=== PATIENT | male | born 1940 | race Caucasian/White ===

== ENCOUNTER 2021-01-27 19:38 | Inpatient (IN) | payer MEDICARE, MEDICAID ==
[~2021-01-27] VITALS: Ht 175.3 cm; Wt 78.5 kg
[~2021-01-27 19:38] MED LIST: ALBUTEROL; ASPI-1497 PO; ATOR40TA70 PO; LOSA100T32 PO
[2021-01-27] MEDS ORDERED: METHYLPREDNISOLONE SOD SUCC 125 MG/2 ML VIAL IV STA (21:16)
[2021-01-27 21:28] LABS: BASOPHILS % 0.4 % (0.0-2.0); EOSINOPHILS % 2.1 % (0.0-5.0); HEMATOCRIT. 46.1 % (42.0-52.0); HEMOGLOBIN. 15.3 g/dL (14.0-18.0); LYMPHOCYTES % 32.4 % (20.0-50.0); MEAN CORPUSCULAR HEMOGLOBIN 32.3 pg (28.0-32.0); MEAN CORPUSCULAR VOLUME 97.1 fL (80.0-94.0); MEAN PLATELET VOLUME 9.7 fl (7.4-10.4); MONOCYTES % 10.5 % (2.0-8.0); NEUTROPHILS % 54.6 % (40.0-76.0); PLATELET 246 x1000/uL (130-400); RED BLOOD CELL COUNT 4.75 mill/uL (4.7-6.1); RED CELL DISTRIBUTION WIDTH 14.3 % (11.6-14.6)
[2021-01-27 21:29] LABS: CHLORIDE 101 mEq/L (98-107)
[2021-01-27] MEDS ORDERED: MAGNESIUM 2 G PREMIX 50 ML IV ONE (21:30)
[2021-01-27] MEDS ORDERED: DOXYCYCLINE HYCLATE 100 MG/VIAL IV ONE (22:15)
[2021-01-27] MEDS ORDERED: CEFTRIAXONE 1 G PREMIX 50 ML IV ONE (22:15)
[2021-01-27] MEDS ORDERED: DOXYCYCLINE 100MG in DEXTROSE 5% WATER 100ML IV NR (22:30)
[2021-01-27] MEDS ORDERED: IPRATROPIUM BROMIDE (0.02%) 0.5MG/2.5ML NEB HHN STA (22:46)
[2021-01-27] MEDS ORDERED: ONDANSETRON HCL 4MG/2ML INJ IV PRN (23:00)
[2021-01-27] MEDS ORDERED: CLONIDINE 0.1MG TABLET PO PRN (23:00)
[2021-01-27] MEDS: AMLODIPINE 10MG TABLET PO SCH (23:00)
[2021-01-27] MEDS ORDERED: HYDROCODONE/ACETAMINOPHEN 5/325MG TABLET PO PRN (23:00)
[2021-01-27] MEDS: METHYLPREDNISOLONE SOD SUCC 125 MG/2 ML VIAL IV SCH (23:00)
[2021-01-27] MEDS ORDERED: CEFTRIAXONE 1 G PREMIX 50 ML IV SCH (23:00)
[2021-01-27] MEDS ORDERED: MAGNESIUM/ALUMINUM HYDROXIDE/SIMETHICONE 30ML UDC PO PRN (23:00)
[2021-01-27] MEDS ORDERED: IPRATROPIUM/ALBUTEROL 0.5-3(2.5)MG/3ML NEB HHN PRN (23:00)
[2021-01-27] MEDS ORDERED: ACETAMINOPHEN 325MG TABLET PO PRN (23:00)
[2021-01-27] MEDS ORDERED: GUAIFENESIN 200MG/10ML SUGAR FREE UDC PO PRN (23:00)
[2021-01-27] MEDS ORDERED: DOCUSATE SODIUM 100MG CAPSULE PO PRN (23:00)
[2021-01-27] MEDS: ALBUTEROL (0.083%) 2.5MG/3ML NEB HHN SCH ×2 (23:55→23:56)
[2021-01-28] MEDS ORDERED: AZITHROMYCIN 500 MG in DEXT 5% WATER 250 ML IV SCH
[2021-01-28] MEDS: ALBUTEROL (0.083%) 2.5MG/3ML NEB HHN SCH (00:53)
[2021-01-28] MEDS: IPRATROPIUM/ALBUTEROL 0.5-3(2.5)MG/3ML NEB HHN SCH (00:58)
[2021-01-28] MEDS: METHYLPREDNISOLONE SOD SUCC 125 MG/2 ML VIAL IV SCH ×3 (05:08→18:07)
[2021-01-28 05:42] LABS: HEMATOCRIT. 45.6 % (42.0-52.0); MEAN CORPUSCULAR HEMOGLOBIN 31.7 pg (28.0-32.0); MEAN CORPUSCULAR VOLUME 96.5 fL (80.0-94.0); MEAN PLATELET VOLUME 9.4 fl (7.4-10.4); PLATELET 239 x1000/uL (130-400); RED BLOOD CELL COUNT 4.72 mill/uL (4.7-6.1); RED CELL DISTRIBUTION WIDTH 13.8 % (11.6-14.6)
[2021-01-28 05:48] LABS: CHLORIDE 100 mEq/L (98-107)
[2021-01-28 05:58] LABS: LDL CHOLESTEROL 82 mg/dL (5-100)
[2021-01-28 06:02] LABS: HDL CHOLESTEROL 46 mg/dL (40-59)
[2021-01-28 07:32] LABS: PLATELET ESTIMATE NORMAL
[2021-01-28] MEDS ORDERED: ASPIRIN 81MG EC TABLET PO SCH (09:00)
[2021-01-28 09:30] VITALS: BP 152/71
[2021-01-28] MEDS ORDERED: NALOXONE HCL 0.4MG/ML VIAL IV PRN (10:00)
[2021-01-28 10:04] LABS: BG BASE EXCESS 1.4 mmol/L (-2.0-2.0); BG CARBOXYHEMOGLOBIN 0.5 % (0.5-1.5); BG DEOXYHEMOGLOBIN 6.5 % (0.0-5.0); BG FRACTION INSPIRED OXYGEN 21; BG METHEMOGLOBIN 0.1 % (0.0-1.5); BG OXYGEN SATURATION 93.5 % (92.0-98.5); BG OXYHEMOGLOBIN 92.9 % (94.0-97.0); BG PCO2 40.8 mmHg (35.0-45.0); BG PH 7.422 (7.350-7.450); BG PO2 67.6 mmHg (75.0-100.0); BG SAMPLE SITE RIGHT RADIAL; BG TOTAL HEMOGLOBIN 16.2 g/dL (12.0-18.0); BG VENT MODE ROOM AIR
[2021-01-28 10:19] VITALS: BP 152/71
[2021-01-28] MEDS: ATORVASTATIN CALCIUM 40MG TABLET PO SCH (11:05)
[2021-01-28] MEDS: LOSARTAN POTASSIUM 100 MG TABLET PO SCH (11:05)
[2021-01-28] MEDS: AMLODIPINE 10MG TABLET PO SCH (11:05)
[2021-01-28] MEDS: ASPIRIN 81MG EC TABLET PO SCH (11:05)
[2021-01-28 16:00] VITALS: BP 123/62
[2021-01-28] MEDS ORDERED: DEXTROSE 50% WATER 50ML SYRINGE IV PRN (19:45)
[2021-01-28 20:00] VITALS: BP 106/62
[2021-01-28] MEDS: CEFTRIAXONE 1,000 MG in DEXTROSE 5% WATER 50 ML IV SCH (20:58)
[2021-01-28] MEDS: BLOOD SUGAR DIAGNOSTIC STRIP TEST SCH (20:59)
[2021-01-28] MEDS: INSULIN LISPRO 100 UNITS/ML SUBCUT SCH (20:59)
[2021-01-29] VITALS (9 sets, daily range): BP systolic 95–136; BP diastolic 51–68
[2021-01-29] MEDS: METHYLPREDNISOLONE SOD SUCC 125 MG/2 ML VIAL IV SCH ×2 (00:17→05:32)
[2021-01-29] MEDS: AZITHROMYCIN 500 MG in DEXT 5% WATER 250 ML IV SCH ×2 (00:17→22:20)
[2021-01-29] MEDS: INSULIN LISPRO 100 UNITS/ML SUBCUT SCH ×5 (06:22→21:59)
[2021-01-29] MEDS: BLOOD SUGAR DIAGNOSTIC STRIP TEST SCH ×4 (06:22→21:58)
[2021-01-29 07:50] LABS: HEMATOCRIT. 45.8 % (42.0-52.0); HEMOGLOBIN. 15.3 g/dL (14.0-18.0); MEAN CORPUSCULAR HEMOGLOBIN 32.4 pg (28.0-32.0); MEAN CORPUSCULAR VOLUME 96.7 fL (80.0-94.0); PLATELET 221 x1000/uL (130-400); RED BLOOD CELL COUNT 4.74 mill/uL (4.7-6.1); RED CELL DISTRIBUTION WIDTH 13.9 % (11.6-14.6)
[2021-01-29] MEDS: IPRATROPIUM/ALBUTEROL 0.5-3(2.5)MG/3ML NEB HHN SCH ×2 (08:44→14:27)
[2021-01-29] MEDS: LOSARTAN POTASSIUM 100 MG TABLET PO SCH (09:22)
[2021-01-29] MEDS: ATORVASTATIN CALCIUM 40MG TABLET PO SCH (09:22)
[2021-01-29] MEDS: ASPIRIN 81MG EC TABLET PO SCH (09:22)
[2021-01-29] MEDS: AMLODIPINE 10MG TABLET PO SCH (09:22)
[2021-01-29] MEDS ORDERED: FLUT1AER INH (12:51)
[2021-01-29] MEDS ORDERED: P20 PO (12:51)
[2021-01-29] MEDS ORDERED: LEVO500T89 MT (12:51)
[2021-01-29] MEDS ORDERED: IPRA3AMP9 NEB (12:51)
[2021-01-29] MEDS: METHYLPREDNISOLONE SOD SUCC 40 MG/ML VIAL IV SCH ×2 (14:08→22:20)
[2021-01-29 15:53] LABS: CLARITY URINE CLEAR (CLEAR); COLOR URINE YELLOW (YELLOW); KETONES URINE NEGATIVE (NEGATIVE); LEUKOCYTE ESTERASE URINE NEGATIVE (NEGATIVE); NITRITE URINE NEGATIVE (NEGATIVE); OCCULT BLOOD URINE NEGATIVE (NEGATIVE); PH URINE 5.5 (4.5-8.0); PROTEIN URINE NEGATIVE (NEGATIVE); SPECIFIC GRAVITY URINE 1.017 (1.005-1.030); UROBILINOGEN URINE 0.2 E.U./dL (0.2-1.0)
[2021-01-29 17:20] LABS: HEMATOCRIT. 49.3 % (42.0-52.0); HEMOGLOBIN. 16.4 g/dL (14.0-18.0); MEAN CORPUSCULAR HEMOGLOBIN 32.1 pg (28.0-32.0); MEAN CORPUSCULAR VOLUME 96.5 fL (80.0-94.0); MEAN PLATELET VOLUME 10.2 fl (7.4-10.4); PLATELET 300 x1000/uL (130-400); RED BLOOD CELL COUNT 5.11 mill/uL (4.7-6.1); RED CELL DISTRIBUTION WIDTH 14.3 % (11.6-14.6)
[2021-01-29 17:33] LABS: PLATELET ESTIMATE NORMAL
[2021-01-29 17:52] LABS: PLATELET ESTIMATE NORMAL
[2021-01-29] MEDS ORDERED: INSULIN LISPRO 100 UNITS/ML SUBCUT NR (21:45)
[2021-01-29] MEDS: CEFTRIAXONE 1,000 MG in DEXTROSE 5% WATER 50 ML IV SCH (21:58)
[2021-01-30] VITALS (7 sets, daily range): BP systolic 119–138; BP diastolic 47–73
[2021-01-30] MEDS: BLOOD SUGAR DIAGNOSTIC STRIP TEST SCH ×4 (06:12→21:45)
[2021-01-30] MEDS: METHYLPREDNISOLONE SOD SUCC 40 MG/ML VIAL IV SCH ×3 (06:12→21:44)
[2021-01-30] MEDS: INSULIN LISPRO 100 UNITS/ML SUBCUT SCH ×4 (06:14→21:45)
[2021-01-30 08:25] LABS: HEMOGLOBIN. 16.4 g/dL (14.0-18.0); MEAN CORPUSCULAR HEMOGLOBIN 32.3 pg (28.0-32.0); MEAN CORPUSCULAR VOLUME 98.5 fL (80.0-94.0); MEAN PLATELET VOLUME 9.9 fl (7.4-10.4); PLATELET 296 x1000/uL (130-400); RED BLOOD CELL COUNT 5.07 mill/uL (4.7-6.1); RED CELL DISTRIBUTION WIDTH 14.1 % (11.6-14.6)
[2021-01-30] MEDS: ASPIRIN 81MG EC TABLET PO SCH (08:57)
[2021-01-30] MEDS: LOSARTAN POTASSIUM 100 MG TABLET PO SCH (08:58)
[2021-01-30] MEDS: AMLODIPINE 10MG TABLET PO SCH (08:58)
[2021-01-30] MEDS: ATORVASTATIN CALCIUM 40MG TABLET PO SCH (08:58)
[2021-01-30 11:08] LABS: PLATELET ESTIMATE NORMAL
[2021-01-30 12:43] LABS: HEMOGLOBIN 16.4 g/dL (14.0-18.0); MEAN CORPUSCULAR VOLUME 97.7 fL (80.0-94.0); PLATELET 300 x1000/uL (130-400); RED BLOOD CELL COUNT 5.11 mill/uL (4.7-6.1); RED CELL DISTRIBUTION WIDTH 14.4 % (11.6-14.6)
[2021-01-30] MEDS: CEFTRIAXONE 1,000 MG in DEXTROSE 5% WATER 50 ML IV SCH (21:44)
[2021-01-30] MEDS: AZITHROMYCIN 500 MG in DEXT 5% WATER 250 ML IV SCH (21:44)
[2021-01-31] MEDS: IPRATROPIUM/ALBUTEROL 0.5-3(2.5)MG/3ML NEB HHN SCH ×2 (01:25→09:00)
[2021-01-31 04:00] VITALS: BP 141/75
[2021-01-31] MEDS: METHYLPREDNISOLONE SOD SUCC 40 MG/ML VIAL IV SCH (05:09)
[2021-01-31] MEDS: INSULIN LISPRO 100 UNITS/ML SUBCUT SCH ×2 (06:11→12:24)
[2021-01-31] MEDS: BLOOD SUGAR DIAGNOSTIC STRIP TEST SCH ×2 (06:12→12:18)
[2021-01-31 06:54] LABS: HEMATOCRIT. 47.3 % (42.0-52.0); HEMOGLOBIN. 15.7 g/dL (14.0-18.0); MEAN CORPUSCULAR HEMOGLOBIN 32.3 pg (28.0-32.0); MEAN CORPUSCULAR VOLUME 97.4 fL (80.0-94.0); MEAN PLATELET VOLUME 9.8 fl (7.4-10.4); PLATELET 261 x1000/uL (130-400); RED BLOOD CELL COUNT 4.86 mill/uL (4.7-6.1); RED CELL DISTRIBUTION WIDTH 14.5 % (11.6-14.6)
[2021-01-31 08:00] VITALS: BP 133/60
[2021-01-31] MEDS: AMLODIPINE 10MG TABLET PO SCH (08:48)
[2021-01-31] MEDS: LOSARTAN POTASSIUM 100 MG TABLET PO SCH (08:48)
[2021-01-31] MEDS: ASPIRIN 81MG EC TABLET PO SCH (08:48)
[2021-01-31] MEDS: ATORVASTATIN CALCIUM 40MG TABLET PO SCH (08:48)
[2021-01-31 12:00] VITALS: BP 135/62
[2021-01-31 12:28] VITALS: BP 135/62
[2021-01-31 22:29] LABS: PLATELET ESTIMATE NORMAL
== END 2021-01-31 13:24 | disposition home or self-care (01) | DRG 193 ==
LOC: ER 19:38 → MICUSO 22:48 → 7WST 01-28 09:50 → 7EST 01-28 12:24
PROVIDERS: ADMIT Internal Medicine; ATTEND Internal Medicine
DX: J18.9 Pneumonia, unspecified organism (principal); J96.01 Acute respiratory failure with hypoxia; J44.1 Chronic obstructive pulmonary disease with (acute) exacerbation; J45.901 Unspecified asthma with (acute) exacerbation; J44.0 Chronic obstructive pulmonary disease with (acute) lower respiratory infection; I11.0 Hypertensive heart disease with heart failure; I50.9 Heart failure, unspecified; Z20.822 Contact with and (suspected) exposure to COVID-19; E78.5 Hyperlipidemia, unspecified; D72.829 Elevated white blood cell count, unspecified; E11.65 Type 2 diabetes mellitus with hyperglycemia; Z82.49 Family history of ischemic heart disease and other diseases of the circulatory system; Z87.891 Personal history of nicotine dependence; Z79.51 Long term (current) use of inhaled steroids; Z79.82 Long term (current) use of aspirin; Z79.899 Other long term (current) drug therapy
CPT/HCPCS: 36415; 36600; 71045; 80048; 80053; 80061; 81003; 82375; 82805; 82962; 83036; 83880; 84145; 84484; 85025; 85027; 85379; 87426; 93005; 93970; 94640; 99285; J0456; J0696; J1815; J2920; J2930; J3475; J3490; J7040; J7060; U0003; U0005

== ENCOUNTER 2021-10-15 22:17 | Inpatient (IN) | payer MEDICARE, MEDICAID ==
[~2021-10-15] VITALS: Ht 165.1 cm; Wt 89.8 kg
[~2021-10-15 22:17] MED LIST changes: -ALBUTEROL; +FLUT1AER INH; +IPRA3AMP9 NEB; +LEVO500T90 MT; +P20 PO
[2021-10-15] MEDS ORDERED: METHYLPREDNISOLONE SOD SUCC 125 MG/2 ML VIAL IV STA (22:21)
[2021-10-15] MEDS ORDERED: ALBUTEROL (0.083%) 2.5MG/3ML NEB HHN STA (22:21)
[2021-10-15] MEDS ORDERED: MAGNESIUM 2 G PREMIX 50 ML IV STA (22:21)
[2021-10-15] MEDS ORDERED: IPRATROPIUM BROMIDE (0.02%) 0.5MG/2.5ML NEB HHN STA (22:21)
[2021-10-15] MEDS ORDERED: CEFTRIAXONE 1 G PREMIX 50 ML IV ONE (22:45)
[2021-10-15] MEDS ORDERED: AZITHROMYCIN 500 MG in DEXT 5% WATER 250 ML IV NR (22:45)
[2021-10-15 22:53] LABS: HEMATOCRIT. 52.6 % (42.0-52.0); HEMOGLOBIN. 17.1 g/dL (14.0-18.0); MEAN CORPUSCULAR VOLUME 98.4 fL (80.0-94.0); MEAN PLATELET VOLUME 9.6 fl (7.4-10.4); PLATELET 200 x1000/uL (130-400); RED BLOOD CELL COUNT 5.34 mill/uL (4.7-6.1); RED CELL DISTRIBUTION WIDTH 14.8 % (11.6-14.6)
[2021-10-15 22:59] LABS: CHLORIDE 104 mEq/L (98-107)
[2021-10-15] MEDS ORDERED: CEFTRIAXONE 1,000 MG in DEXTROSE 5% WATER 50 ML IV NR (23:00)
[2021-10-15] MEDS ORDERED: SODIUM CHLORIDE 0.9% 1000ML BAG (SEPSIS BOLUS) IV ONE (23:15)
[2021-10-15 23:28] LABS: PLATELET ESTIMATE NORMAL
[2021-10-16] VITALS (17 sets, daily range): BP systolic 100–135; BP diastolic 53–70
[2021-10-16] MEDS ORDERED: IPRATROPIUM BROMIDE (0.02%) 0.5MG/2.5ML NEB HHN STA ×2 (01:03→02:31)
[2021-10-16] MEDS ORDERED: ALBUTEROL (0.083%) 2.5MG/3ML NEB HHN STA ×2 (01:03→02:31)
[2021-10-16] MEDS ORDERED: METHYLPREDNISOLONE SOD SUCC 125 MG/2 ML VIAL IV STA (02:31)
[2021-10-16 04:29] LABS: BG BASE EXCESS -9.8 mmol/L (-2.0-2.0); BG CARBOXYHEMOGLOBIN 0.7 % (0.5-1.5); BG DEOXYHEMOGLOBIN 5.2 % (0.0-5.0); BG HCO3 ACT 19.4 mmol/L (22.0-26.0); BG METHEMOGLOBIN 0.6 % (0.0-1.5); BG OXYGEN SATURATION 94.7 % (92.0-98.5); BG OXYHEMOGLOBIN 93.5 % (94.0-97.0); BG PH 7.166 (7.350-7.450); BG PO2 89.7 mmHg (75.0-100.0); BG SAMPLE SITE RIGHT BRACHIAL; BG TOTAL HEMOGLOBIN 17.4 g/dL (12.0-18.0); BG VENT MODE MASK - SIMPLE
[2021-10-16] MEDS ORDERED: CEFTRIAXONE 1 G PREMIX 50 ML IV SCH (05:15)
[2021-10-16] MEDS: METHYLPREDNISOLONE SOD SUCC 40 MG/ML VIAL IV SCH ×4 (05:34→23:03)
[2021-10-16 06:10] LABS: BG BASE EXCESS -11.7 mmol/L (-2.0-2.0); BG CARBOXYHEMOGLOBIN 1.1 % (0.5-1.5); BG DEOXYHEMOGLOBIN 2.2 % (0.0-5.0); BG FRACTION INSPIRED OXYGEN 50; BG HCO3 ACT 16.5 mmol/L (22.0-26.0); BG METHEMOGLOBIN 0.4 % (0.0-1.5); BG OXYGEN SATURATION 97.8 % (92.0-98.5); BG OXYHEMOGLOBIN 96.3 % (94.0-97.0); BG PCO2 45.4 mmHg (35.0-45.0); BG PH 7.178 (7.350-7.450); BG PO2 130.3 mmHg (75.0-100.0); BG SAMPLE SITE RIGHT RADIAL; BG TOTAL HEMOGLOBIN 16.5 g/dL (12.0-18.0); BG TOTAL RESPIRATORY RATE 28 b/min
[2021-10-16] MEDS ORDERED: SODIUM BICARBONATE 8.4% 1 MEQ/ML 50ML SYR IV NR (06:15)
[2021-10-16] MEDS: ENOXAPARIN 30MG/0.3ML SYR SUBCUT SCH (08:10)
[2021-10-16] MEDS ORDERED: IPRATROPIUM/ALBUTEROL 0.5-3(2.5)MG/3ML NEB HHN PRN (08:15)
[2021-10-16] MEDS ORDERED: VANCOMYCIN 1.25GM PMX (XELLIA) 250 ML IV NR (10:00)
[2021-10-16 10:53] LABS: HEMATOCRIT. 49.8 % (42.0-52.0); MEAN CORPUSCULAR HEMOGLOBIN 31.9 pg (28.0-32.0); MEAN CORPUSCULAR VOLUME 99.6 fL (80.0-94.0); MEAN PLATELET VOLUME 9.7 fl (7.4-10.4); PLATELET 158 x1000/uL (130-400); RED BLOOD CELL COUNT 5.01 mill/uL (4.7-6.1); RED CELL DISTRIBUTION WIDTH 15.1 % (11.6-14.6)
[2021-10-16 11:14] LABS: CREATINE KINASE MB FRACTION 3.1 ng/mL (0.5-3.6)
[2021-10-16] MEDS: AZITHROMYCIN 500 MG TABLET PO SCH (12:00)
[2021-10-16 12:02] LABS: BG BASE EXCESS -5.5 mmol/L (-2.0-2.0); BG CARBOXYHEMOGLOBIN 0.4 % (0.5-1.5); BG DEOXYHEMOGLOBIN 2.6 % (0.0-5.0); BG FRACTION INSPIRED OXYGEN 40; BG HCO3 ACT 19.9 mmol/L (22.0-26.0); BG METHEMOGLOBIN 0.3 % (0.0-1.5); BG OXYGEN SATURATION 97.4 % (92.0-98.5); BG OXYHEMOGLOBIN 96.7 % (94.0-97.0); BG PCO2 38.8 mmHg (35.0-45.0); BG PH 7.328 (7.350-7.450); BG PO2 100.8 mmHg (75.0-100.0); BG SAMPLE SITE LEFT RADIAL; BG TOTAL HEMOGLOBIN 16.4 g/dL (12.0-18.0); BG TOTAL RESPIRATORY RATE 18 b/min; BG VENT MODE MASK - BIPAP
[2021-10-16] MEDS: IPRATROPIUM BROMIDE (0.02%) 0.5MG/2.5ML NEB HHN SCH ×3 (12:08→20:24)
[2021-10-16] MEDS: PIPERACILLIN/TAZOBACTAM 3.375 G in DEXTROSE 5% WATER 50 ML IV SCH ×2 (13:23→21:20)
[2021-10-16] MEDS: HYDROCODONE/ACETAMINOPHEN 5/325MG TABLET PO PRN (13:50)
[2021-10-16] MEDS ORDERED: NALOXONE HCL 0.4MG/ML VIAL IV PRN (14:00)
[2021-10-16 15:18] LABS: PLATELET ESTIMATE NORMAL
[2021-10-16 18:04] LABS: CLARITY URINE CLEAR (CLEAR); COLOR URINE YELLOW (YELLOW); KETONES URINE 1+ (NEGATIVE); LEUKOCYTE ESTERASE URINE NEGATIVE (NEGATIVE); NITRITE URINE NEGATIVE (NEGATIVE); OCCULT BLOOD URINE NEGATIVE (NEGATIVE); PROTEIN URINE 1+ (NEGATIVE); SPECIFIC GRAVITY URINE 1.022 (1.005-1.030); UROBILINOGEN URINE 0.2 E.U./dL (0.2-1.0)
[2021-10-16 18:41] LABS: *AMPHETAMINES SCREEN URINE NEGATIVE (NEGATIVE); *BARBITURATES SCREEN URINE NEGATIVE (NEGATIVE); *BENZODIAZEPINES SCREEN URINE NEGATIVE (NEGATIVE); *COCAINE SCREEN URINE NEGATIVE (NEGATIVE); CANNABINOID URINE SCREEN NEGATIVE (NEGATIVE); METHADONE URINE SCREEN NEGATIVE (NEGATIVE); OPIATES URINE SCREEN NEGATIVE (NEGATIVE); PHENCYCLIDINE URINE SCREEN NEGATIVE (NEGATIVE)
[2021-10-16] MEDS: ATORVASTATIN CALCIUM 40MG TABLET PO SCH (21:20)
[2021-10-16] MEDS ORDERED: AZITHROMYCIN 500 MG in DEXT 5% WATER 250 ML IV SCH (22:00)
[2021-10-16] MEDS ORDERED: CEFTRIAXONE 1,000 MG in DEXTROSE 5% WATER 50 ML IV SCH (23:00)
[2021-10-17] VITALS (13 sets, daily range): BP systolic 93–154; BP diastolic 48–90
[2021-10-17] MEDS: IPRATROPIUM BROMIDE (0.02%) 0.5MG/2.5ML NEB HHN SCH ×6 (00:11→19:50)
[2021-10-17] MEDS: ACETYLCYSTEINE 100MG/ML 10% VIAL 4ML INH SCH ×2 (00:13→16:51)
[2021-10-17] MEDS: VANCOMYCIN 750MG PMX (XELLIA) 150 ML IV SCH ×2 (03:00→20:42)
[2021-10-17] MEDS: PIPERACILLIN/TAZOBACTAM 3.375 G in DEXTROSE 5% WATER 50 ML IV SCH ×3 (05:16→20:42)
[2021-10-17] MEDS: METHYLPREDNISOLONE SOD SUCC 40 MG/ML VIAL IV SCH ×4 (05:16→23:42)
[2021-10-17 06:12] LABS: HEMATOCRIT. 45.7 % (42.0-52.0); HEMOGLOBIN. 15.2 g/dL (14.0-18.0); MEAN CORPUSCULAR HEMOGLOBIN 32.3 pg (28.0-32.0); MEAN CORPUSCULAR VOLUME 97.4 fL (80.0-94.0); MEAN PLATELET VOLUME 10.5 fl (7.4-10.4); PLATELET 145 x1000/uL (130-400); RED BLOOD CELL COUNT 4.69 mill/uL (4.7-6.1); RED CELL DISTRIBUTION WIDTH 14.7 % (11.6-14.6)
[2021-10-17] MEDS: ENOXAPARIN 30MG/0.3ML SYR SUBCUT SCH (08:04)
[2021-10-17] MEDS: AZITHROMYCIN 500 MG TABLET PO SCH (08:04)
[2021-10-17 08:35] LABS: BG BASE EXCESS 1.4 mmol/L (-2.0-2.0); BG CARBOXYHEMOGLOBIN 0.6 % (0.5-1.5); BG DEOXYHEMOGLOBIN 2.8 % (0.0-5.0); BG FRACTION INSPIRED OXYGEN 50; BG METHEMOGLOBIN 0.4 % (0.0-1.5); BG OXYGEN SATURATION 97.2 % (92.0-98.5); BG OXYHEMOGLOBIN 96.2 % (94.0-97.0); BG PCO2 51.2 mmHg (35.0-45.0); BG PH 7.356 (7.350-7.450); BG PO2 94.6 mmHg (75.0-100.0); BG SAMPLE SITE RIGHT RADIAL; BG TOTAL HEMOGLOBIN 16.1 g/dL (12.0-18.0); BG TOTAL RESPIRATORY RATE 23 b/min; BG VENT MODE MASK - BIPAP
[2021-10-17 10:15] LABS: PLATELET ESTIMATE NORMAL
[2021-10-17] MEDS ORDERED: IOHEXOL-350 100 ML BOTTLE ONE (11:01)
[2021-10-17] MEDS: ACETAMINOPHEN 650MG/20.3ML UDC PO PRN (16:45)
[2021-10-17] MEDS: ATORVASTATIN CALCIUM 40MG TABLET PO SCH (20:41)
[2021-10-18] VITALS (12 sets, daily range): BP systolic 115–147; BP diastolic 56–96
[2021-10-18] MEDS: IPRATROPIUM BROMIDE (0.02%) 0.5MG/2.5ML NEB HHN SCH ×6 (00:13→20:54)
[2021-10-18] MEDS: ACETYLCYSTEINE 100MG/ML 10% VIAL 4ML INH SCH ×3 (00:40→17:20)
[2021-10-18 05:39] LABS: HEMATOCRIT. 44.2 % (42.0-52.0); HEMOGLOBIN. 14.4 g/dL (14.0-18.0); MEAN CORPUSCULAR HEMOGLOBIN 31.3 pg (28.0-32.0); MEAN CORPUSCULAR VOLUME 96.5 fL (80.0-94.0); MEAN PLATELET VOLUME 10.1 fl (7.4-10.4); PLATELET 151 x1000/uL (130-400); RED BLOOD CELL COUNT 4.58 mill/uL (4.7-6.1); RED CELL DISTRIBUTION WIDTH 14.8 % (11.6-14.6)
[2021-10-18] MEDS: METHYLPREDNISOLONE SOD SUCC 40 MG/ML VIAL IV SCH (05:40)
[2021-10-18 05:48] LABS: CHLORIDE 104 mEq/L (98-107)
[2021-10-18] MEDS: HYDROCODONE/ACETAMINOPHEN 5/325MG TABLET PO PRN ×2 (05:53→17:37)
[2021-10-18] MEDS: PIPERACILLIN/TAZOBACTAM 3.375 G in DEXTROSE 5% WATER 50 ML IV SCH ×2 (06:03→14:33)
[2021-10-18] MEDS: AZITHROMYCIN 500 MG TABLET PO SCH (09:09)
[2021-10-18] MEDS: ACETAMINOPHEN 650MG/20.3ML UDC PO PRN (09:10)
[2021-10-18] MEDS: ENOXAPARIN 30MG/0.3ML SYR SUBCUT SCH (09:10)
[2021-10-18 09:47] LABS: PLATELET ESTIMATE NORMAL
[2021-10-18] MEDS: VANCOMYCIN 750MG PMX (XELLIA) 150 ML IV SCH ×2 (10:42→17:38)
[2021-10-18] MEDS ORDERED: LORAZEPAM 0.5MG TABLET PO PRN (15:00)
[2021-10-18] MEDS ORDERED: DILTIAZEM HCL 5MG/ML 5ML VIAL IV NR (15:00)
[2021-10-18] MEDS: PREDNISONE 20MG TABLET PO SCH (17:38)
[2021-10-18] MEDS: MEROPENEM 1,000 MG in SODIUM CHLORIDE 0.9% 100 ML IV SCH (20:12)
[2021-10-18] MEDS: ATORVASTATIN CALCIUM 40MG TABLET PO SCH (20:12)
[2021-10-18] MEDS: DILTIAZEM HCL 5MG/ML 5ML VIAL IV PRN (23:07)
[2021-10-19] VITALS (12 sets, daily range): BP systolic 106–152; BP diastolic 53–79
[2021-10-19] MEDS: IPRATROPIUM BROMIDE (0.02%) 0.5MG/2.5ML NEB HHN SCH ×6 (00:49→20:43)
[2021-10-19] MEDS: VANCOMYCIN 750MG PMX (XELLIA) 150 ML IV SCH ×3 (01:11→18:44)
[2021-10-19] MEDS: MEROPENEM 1,000 MG in SODIUM CHLORIDE 0.9% 100 ML IV SCH ×3 (05:01→21:12)
[2021-10-19] MEDS: ACETYLCYSTEINE 100MG/ML 10% VIAL 4ML INH SCH ×2 (08:48→16:25)
[2021-10-19] MEDS: AZITHROMYCIN 500 MG TABLET PO SCH (09:06)
[2021-10-19] MEDS: PREDNISONE 20MG TABLET PO SCH ×2 (09:06→18:44)
[2021-10-19] MEDS: ACETAMINOPHEN 650MG/20.3ML UDC PO PRN (09:06)
[2021-10-19] MEDS: ENOXAPARIN 40MG/0.4ML SYR SUBCUT SCH (09:07)
[2021-10-19 13:33] LABS: BG BASE EXCESS 5.1 mmol/L (-2.0-2.0); BG CARBOXYHEMOGLOBIN 0.3 % (0.5-1.5); BG DEOXYHEMOGLOBIN 3.7 % (0.0-5.0); BG FRACTION INSPIRED OXYGEN 34; BG HCO3 ACT 31.4 mmol/L (22.0-26.0); BG METHEMOGLOBIN 0.3 % (0.0-1.5); BG OXYGEN SATURATION 96.3 % (92.0-98.5); BG OXYHEMOGLOBIN 95.7 % (94.0-97.0); BG PCO2 52.1 mmHg (35.0-45.0); BG PH 7.398 (7.350-7.450); BG PO2 86.8 mmHg (75.0-100.0); BG SAMPLE SITE RIGHT RADIAL; BG TOTAL HEMOGLOBIN 15.4 g/dL (12.0-18.0); BG VENT MODE NASAL CANNULA
[2021-10-19] MEDS: HYDROCODONE/ACETAMINOPHEN 5/325MG TABLET PO PRN (15:27)
[2021-10-19 16:21] LABS: HEMATOCRIT. 42.3 % (42.0-52.0); HEMOGLOBIN. 13.8 g/dL (14.0-18.0); MEAN CORPUSCULAR HEMOGLOBIN 31.6 pg (28.0-32.0); MEAN CORPUSCULAR VOLUME 97.2 fL (80.0-94.0); MEAN PLATELET VOLUME 10.6 fl (7.4-10.4); PLATELET 125 x1000/uL (130-400); RED BLOOD CELL COUNT 4.36 mill/uL (4.7-6.1)
[2021-10-19 16:42] LABS: CHLORIDE 103 mEq/L (98-107)
[2021-10-19 18:23] LABS: PLATELET ESTIMATE DECREASED
[2021-10-19] MEDS: ATORVASTATIN CALCIUM 40MG TABLET PO SCH (21:12)
[2021-10-20] VITALS (12 sets, daily range): BP systolic 107–159; BP diastolic 57–94
[2021-10-20] MEDS: IPRATROPIUM BROMIDE (0.02%) 0.5MG/2.5ML NEB HHN SCH ×6 (00:32→17:48)
[2021-10-20] MEDS: ACETYLCYSTEINE 100MG/ML 10% VIAL 4ML INH SCH ×4 (00:32→22:00)
[2021-10-20] MEDS: VANCOMYCIN 750MG PMX (XELLIA) 150 ML IV SCH ×3 (01:32→17:47)
[2021-10-20] MEDS: HYDROCODONE/ACETAMINOPHEN 5/325MG TABLET PO PRN ×2 (02:11→14:17)
[2021-10-20] MEDS: DILTIAZEM HCL 5MG/ML 5ML VIAL IV PRN ×4 (04:11→23:12)
[2021-10-20] MEDS: MEROPENEM 1,000 MG in SODIUM CHLORIDE 0.9% 100 ML IV SCH ×3 (05:12→20:37)
[2021-10-20] MEDS: ENOXAPARIN 40MG/0.4ML SYR SUBCUT SCH (09:40)
[2021-10-20] MEDS: AZITHROMYCIN 500 MG TABLET PO SCH (09:40)
[2021-10-20] MEDS: PREDNISONE 20MG TABLET PO SCH ×2 (09:40→17:47)
[2021-10-20 10:05] LABS: HEMATOCRIT. 46.2 % (42.0-52.0); MEAN CORPUSCULAR HEMOGLOBIN 31.4 pg (28.0-32.0); MEAN CORPUSCULAR VOLUME 96.9 fL (80.0-94.0); MEAN PLATELET VOLUME 10.4 fl (7.4-10.4); PLATELET 150 x1000/uL (130-400); RED BLOOD CELL COUNT 4.77 mill/uL (4.7-6.1); RED CELL DISTRIBUTION WIDTH 14.8 % (11.6-14.6)
[2021-10-20 10:16] LABS: CHLORIDE 102 mEq/L (98-107)
[2021-10-20] MEDS: SODIUM CHLORIDE 0.9% 1,000 ML IV SCH ×2 (14:39→23:56)
[2021-10-20 17:42] LABS: PLATELET ESTIMATE NORMAL
[2021-10-20] MEDS: ATORVASTATIN CALCIUM 40MG TABLET PO SCH (20:36)
[2021-10-21] VITALS (12 sets, daily range): BP systolic 124–149; BP diastolic 64–88
[2021-10-21] MEDS: IPRATROPIUM BROMIDE (0.02%) 0.5MG/2.5ML NEB HHN SCH ×6 (01:16→20:53)
[2021-10-21] MEDS: VANCOMYCIN 750MG PMX (XELLIA) 150 ML IV SCH ×3 (03:03→17:03)
[2021-10-21] MEDS: MEROPENEM 1,000 MG in SODIUM CHLORIDE 0.9% 100 ML IV SCH ×3 (05:39→21:26)
[2021-10-21 08:10] LABS: HEMATOCRIT. 46.7 % (42.0-52.0); HEMOGLOBIN. 14.9 g/dL (14.0-18.0); MEAN CORPUSCULAR VOLUME 97.2 fL (80.0-94.0); MEAN PLATELET VOLUME 10.2 fl (7.4-10.4); PLATELET 173 x1000/uL (130-400)
[2021-10-21] MEDS: ACETYLCYSTEINE 100MG/ML 10% VIAL 4ML INH SCH ×2 (08:10→15:57)
[2021-10-21] MEDS: ENOXAPARIN 40MG/0.4ML SYR SUBCUT SCH (08:33)
[2021-10-21] MEDS: PREDNISONE 20MG TABLET PO SCH ×2 (08:33→17:04)
[2021-10-21 08:34] LABS: CHLORIDE 100 mEq/L (98-107)
[2021-10-21] MEDS: SODIUM CHLORIDE 0.9% 1,000 ML IV SCH ×2 (08:34→13:38)
[2021-10-21 10:09] LABS: BG CARBOXYHEMOGLOBIN 0.6 % (0.5-1.5); BG DEOXYHEMOGLOBIN 2.5 % (0.0-5.0); BG FRACTION INSPIRED OXYGEN 36; BG HCO3 ACT 30.2 mmol/L (22.0-26.0); BG METHEMOGLOBIN 0.3 % (0.0-1.5); BG OXYGEN SATURATION 97.5 % (92.0-98.5); BG OXYHEMOGLOBIN 96.6 % (94.0-97.0); BG PCO2 50.9 mmHg (35.0-45.0); BG PH 7.391 (7.350-7.450); BG SAMPLE SITE LEFT RADIAL; BG TOTAL HEMOGLOBIN 15.1 g/dL (12.0-18.0); BG VENT MODE NASAL CANNULA
[2021-10-21] MEDS: DILTIAZEM HCL 5MG/ML 5ML VIAL IV PRN (13:43)
[2021-10-21] MEDS ORDERED: DILTIAZEM HCL 30MG TABLET PO NR (15:15)
[2021-10-21] MEDS ORDERED: DEXTROSE 50% WATER 50ML SYRINGE IV PRN (15:15)
[2021-10-21] MEDS ORDERED: METHYLPREDNISOLONE SOD SUCC 40 MG/ML VIAL IV NR (15:15)
[2021-10-21 15:59] LABS: BG BASE EXCESS 5.6 mmol/L (-2.0-2.0); BG CARBOXYHEMOGLOBIN 0.9 % (0.5-1.5); BG DEOXYHEMOGLOBIN 1.5 % (0.0-5.0); BG FRACTION INSPIRED OXYGEN 50; BG HCO3 ACT 33.1 mmol/L (22.0-26.0); BG METHEMOGLOBIN 0.5 % (0.0-1.5); BG OXYGEN SATURATION 98.5 % (92.0-98.5); BG OXYHEMOGLOBIN 97.1 % (94.0-97.0); BG PCO2 59.2 mmHg (35.0-45.0); BG PH 7.365 (7.350-7.450); BG SAMPLE SITE RIGHT BRACHIAL; BG TOTAL HEMOGLOBIN 15.7 g/dL (12.0-18.0); BG VENT MODE MASK - BIPAP
[2021-10-21] MEDS: BLOOD SUGAR DIAGNOSTIC STRIP TEST SCH ×2 (16:43→20:49)
[2021-10-21] MEDS: DILTIAZEM HCL 30MG TABLET PO SCH ×2 (17:03→23:17)
[2021-10-21] MEDS: INSULIN LISPRO 100 UNITS/ML SUBCUT SCH ×2 (17:05→20:59)
[2021-10-21 17:35] LABS: PLATELET ESTIMATE NORMAL
[2021-10-21 20:48] LABS: BG BASE EXCESS 8.6 mmol/L (-2.0-2.0); BG CARBOXYHEMOGLOBIN 0.7 % (0.5-1.5); BG DEOXYHEMOGLOBIN 2.6 % (0.0-5.0); BG FRACTION INSPIRED OXYGEN 40; BG HCO3 ACT 35.4 mmol/L (22.0-26.0); BG METHEMOGLOBIN 0.4 % (0.0-1.5); BG OXYGEN SATURATION 97.4 % (92.0-98.5); BG OXYHEMOGLOBIN 96.3 % (94.0-97.0); BG PCO2 56.8 mmHg (35.0-45.0); BG PH 7.413 (7.350-7.450); BG PO2 100.2 mmHg (75.0-100.0); BG SAMPLE SITE RIGHT RADIAL; BG TOTAL HEMOGLOBIN 15.7 g/dL (12.0-18.0); BG VENT MODE NASAL CANNULA
[2021-10-21] MEDS: ATORVASTATIN CALCIUM 40MG TABLET PO SCH (20:50)
[2021-10-21] MEDS: ENOXAPARIN 100MG/ML SYR SUBCUT SCH (20:53)
[2021-10-21] MEDS: LACTULOSE 20G/30ML UDC PO SCH (21:26)
[2021-10-21 22:17] LABS: INR 1.2; PROTHROMBIN TIME 12.9 sec (9.6-11.0)
[2021-10-22] VITALS (12 sets, daily range): BP systolic 124–164; BP diastolic 54–92
[2021-10-22] MEDS: ONDANSETRON HCL 4MG/2ML INJ IV PRN ×2 (00:24→05:39)
[2021-10-22] MEDS: ACETYLCYSTEINE 100MG/ML 10% VIAL 4ML INH SCH ×3 (00:42→08:28)
[2021-10-22] MEDS: IPRATROPIUM BROMIDE (0.02%) 0.5MG/2.5ML NEB HHN SCH ×6 (00:45→20:44)
[2021-10-22] MEDS ORDERED: PANTOPRAZOLE SODIUM 40 MG/VIAL IV NR (01:00)
[2021-10-22] MEDS: MEROPENEM 1,000 MG in SODIUM CHLORIDE 0.9% 100 ML IV SCH ×3 (04:51→21:03)
[2021-10-22] MEDS: LACTULOSE 20G/30ML UDC PO SCH ×3 (05:54→21:02)
[2021-10-22] MEDS: DILTIAZEM HCL 30MG TABLET PO SCH ×3 (05:55→18:01)
[2021-10-22] MEDS: SODIUM CHLORIDE 0.9% 1,000 ML IV SCH (05:57)
[2021-10-22 07:46] LABS: CHLORIDE 101 mEq/L (98-107)
[2021-10-22 07:49] LABS: HEMATOCRIT. 45.3 % (42.0-52.0); HEMOGLOBIN. 14.9 g/dL (14.0-18.0); MEAN CORPUSCULAR HEMOGLOBIN 31.9 pg (28.0-32.0); MEAN CORPUSCULAR VOLUME 97.1 fL (80.0-94.0); MEAN PLATELET VOLUME 10.2 fl (7.4-10.4); PLATELET 211 x1000/uL (130-400); RED BLOOD CELL COUNT 4.67 mill/uL (4.7-6.1); RED CELL DISTRIBUTION WIDTH 14.7 % (11.6-14.6)
[2021-10-22] MEDS: BLOOD SUGAR DIAGNOSTIC STRIP TEST SCH ×4 (07:59→21:03)
[2021-10-22] MEDS: INSULIN LISPRO 100 UNITS/ML SUBCUT SCH ×4 (08:00→21:09)
[2021-10-22] MEDS: PREDNISONE 20MG TABLET PO SCH ×2 (08:10→17:59)
[2021-10-22] MEDS: ENOXAPARIN 100MG/ML SYR SUBCUT SCH ×3 (08:11→16:10)
[2021-10-22] MEDS ORDERED: PANTOPRAZOLE SODIUM 40 MG/VIAL IV SCH (09:00)
[2021-10-22 13:21] LABS: PLATELET ESTIMATE NORMAL
[2021-10-22 15:52] LABS: HEMATOCRIT 44.8 % (42.0-52.0); HEMOGLOBIN 14.5 g/dL (14.0-18.0); MEAN CORPUSCULAR HEMOGLOBIN 31.6 pg (28.0-32.0); MEAN CORPUSCULAR VOLUME 97.5 fL (80.0-94.0); PLATELET 174 x1000/uL (130-400); RED CELL DISTRIBUTION WIDTH 14.9 % (11.6-14.6)
[2021-10-22 16:37] LABS: TOTAL IRON BINDING CAPACITY 136 ug/dL (250-450)
[2021-10-22 16:59] LABS: FERRITIN 413 ng/mL (22-322)
[2021-10-22] MEDS: PANTOPRAZOLE SODIUM 40 MG/VIAL IV SCH (21:03)
[2021-10-22] MEDS: ATORVASTATIN CALCIUM 40MG TABLET PO SCH (21:03)
[2021-10-22 21:29] LABS: HEMATOCRIT 43.2 % (42.0-52.0)
[2021-10-23] VITALS (12 sets, daily range): BP systolic 133–161; BP diastolic 57–81
[2021-10-23 01:58] LABS: HEMATOCRIT 43.2 % (42.0-52.0); HEMOGLOBIN 14.5 g/dL (14.0-18.0)
[2021-10-23] MEDS: IPRATROPIUM BROMIDE (0.02%) 0.5MG/2.5ML NEB HHN SCH ×6 (02:32→20:48)
[2021-10-23] MEDS: LACTULOSE 20G/30ML UDC PO SCH ×3 (05:11→21:13)
[2021-10-23] MEDS: MEROPENEM 1,000 MG in SODIUM CHLORIDE 0.9% 100 ML IV SCH ×3 (05:11→21:12)
[2021-10-23] MEDS: DILTIAZEM HCL 30MG TABLET PO SCH ×4 (05:12→17:34)
[2021-10-23] MEDS: SODIUM CHLORIDE 0.9% 1,000 ML IV SCH (05:13)
[2021-10-23] MEDS: BLOOD SUGAR DIAGNOSTIC STRIP TEST SCH ×4 (08:25→21:00)
[2021-10-23] MEDS: ENOXAPARIN 100MG/ML SYR SUBCUT SCH ×2 (08:26→21:13)
[2021-10-23] MEDS: PREDNISONE 20MG TABLET PO SCH ×2 (08:26→17:34)
[2021-10-23] MEDS: PANTOPRAZOLE SODIUM 40 MG/VIAL IV SCH ×2 (08:26→21:13)
[2021-10-23] MEDS: INSULIN LISPRO 100 UNITS/ML SUBCUT SCH ×4 (08:34→22:14)
[2021-10-23 09:53] LABS: HEMOGLOBIN. 14.5 g/dL (14.0-18.0); MEAN CORPUSCULAR HEMOGLOBIN 31.6 pg (28.0-32.0); MEAN CORPUSCULAR VOLUME 95.8 fL (80.0-94.0); MEAN PLATELET VOLUME 10.4 fl (7.4-10.4); PLATELET 225 x1000/uL (130-400); RED BLOOD CELL COUNT 4.59 mill/uL (4.7-6.1); RED CELL DISTRIBUTION WIDTH 14.7 % (11.6-14.6)
[2021-10-23 10:25] LABS: CHLORIDE 98 mEq/L (98-107)
[2021-10-23] MEDS: HYDRALAZINE HCL 50MG TABLET PO SCH ×3 (11:00→21:14)
[2021-10-23 12:44] LABS: PLATELET ESTIMATE NORMAL
[2021-10-23 15:58] LABS: HEMATOCRIT 48.7 % (42.0-52.0); HEMOGLOBIN 15.6 g/dL (14.0-18.0)
[2021-10-23] MEDS ORDERED: MELATONIN 3MG TABLET PO PRN (21:00)
[2021-10-23] MEDS: ATORVASTATIN CALCIUM 40MG TABLET PO SCH (21:14)
[2021-10-24] VITALS (11 sets, daily range): BP systolic 133–164; BP diastolic 53–80
[2021-10-24] MEDS: DILTIAZEM HCL 30MG TABLET PO SCH ×2 (00:20→05:39)
[2021-10-24] MEDS: IPRATROPIUM BROMIDE (0.02%) 0.5MG/2.5ML NEB HHN SCH ×5 (04:33→20:59)
[2021-10-24] MEDS: MEROPENEM 1,000 MG in SODIUM CHLORIDE 0.9% 100 ML IV SCH ×3 (05:38→21:19)
[2021-10-24] MEDS: HYDRALAZINE HCL 50MG TABLET PO SCH ×3 (05:39→21:19)
[2021-10-24] MEDS: SODIUM CHLORIDE 0.9% 1,000 ML IV SCH ×2 (05:39→08:55)
[2021-10-24] MEDS: LACTULOSE 20G/30ML UDC PO SCH ×3 (05:40→21:16)
[2021-10-24 06:43] LABS: HEMOGLOBIN. 14.5 g/dL (14.0-18.0); MEAN CORPUSCULAR HEMOGLOBIN 31.8 pg (28.0-32.0); MEAN CORPUSCULAR VOLUME 96.1 fL (80.0-94.0); MEAN PLATELET VOLUME 10.6 fl (7.4-10.4); PLATELET 225 x1000/uL (130-400); RED BLOOD CELL COUNT 4.58 mill/uL (4.7-6.1); RED CELL DISTRIBUTION WIDTH 14.8 % (11.6-14.6)
[2021-10-24 06:55] LABS: CHLORIDE 102 mEq/L (98-107)
[2021-10-24] MEDS: BLOOD SUGAR DIAGNOSTIC STRIP TEST SCH ×4 (07:30→21:17)
[2021-10-24 10:00] LABS: PLATELET ESTIMATE NORMAL
[2021-10-24] MEDS: INSULIN LISPRO 100 UNITS/ML SUBCUT SCH ×4 (10:16→21:17)
[2021-10-24] MEDS: PREDNISONE 20MG TABLET PO SCH ×2 (10:18→17:55)
[2021-10-24] MEDS: ENOXAPARIN 100MG/ML SYR SUBCUT SCH ×2 (10:18→21:17)
[2021-10-24] MEDS: PANTOPRAZOLE SODIUM 40 MG/VIAL IV SCH ×2 (10:18→21:16)
[2021-10-24] MEDS: DILTIAZEM HCL 60MG TABLET PO SCH ×2 (15:02→21:19)
[2021-10-24] MEDS: ATORVASTATIN CALCIUM 40MG TABLET PO SCH (21:17)
[2021-10-25] VITALS (11 sets, daily range): BP systolic 122–153; BP diastolic 47–74
[2021-10-25] MEDS: IPRATROPIUM BROMIDE (0.02%) 0.5MG/2.5ML NEB HHN SCH ×6 (00:42→20:56)
[2021-10-25] MEDS: SODIUM CHLORIDE 0.9% 1,000 ML IV SCH ×2 (01:00→17:11)
[2021-10-25] MEDS: DILTIAZEM HCL 60MG TABLET PO SCH ×3 (06:00→21:46)
[2021-10-25] MEDS: HYDRALAZINE HCL 50MG TABLET PO SCH ×3 (06:00→21:46)
[2021-10-25] MEDS: LACTULOSE 20G/30ML UDC PO SCH ×3 (06:00→21:45)
[2021-10-25 06:56] LABS: INR 1.1; PROTHROMBIN TIME 11.9 sec (9.6-11.0)
[2021-10-25 07:00] LABS: HEMATOCRIT. 43.9 % (42.0-52.0); HEMOGLOBIN. 14.5 g/dL (14.0-18.0); MEAN CORPUSCULAR HEMOGLOBIN 31.4 pg (28.0-32.0); MEAN CORPUSCULAR VOLUME 95.3 fL (80.0-94.0); MEAN PLATELET VOLUME 10.2 fl (7.4-10.4); PLATELET 264 x1000/uL (130-400); RED BLOOD CELL COUNT 4.61 mill/uL (4.7-6.1); RED CELL DISTRIBUTION WIDTH 14.6 % (11.6-14.6)
[2021-10-25] MEDS: MEROPENEM 1,000 MG in SODIUM CHLORIDE 0.9% 100 ML IV SCH ×3 (07:14→21:46)
[2021-10-25] MEDS: INSULIN LISPRO 100 UNITS/ML SUBCUT SCH ×4 (08:00→21:46)
[2021-10-25] MEDS: PREDNISONE 20MG TABLET PO SCH ×2 (08:00→17:11)
[2021-10-25] MEDS: BLOOD SUGAR DIAGNOSTIC STRIP TEST SCH ×4 (08:23→21:46)
[2021-10-25] MEDS: ENOXAPARIN 100MG/ML SYR SUBCUT SCH ×2 (08:23→21:45)
[2021-10-25 08:37] LABS: CHLORIDE 98 mEq/L (98-107)
[2021-10-25] MEDS: PANTOPRAZOLE SODIUM 40 MG/VIAL IV SCH ×2 (09:55→21:47)
[2021-10-25] MEDS ORDERED: LIDOCAINE HCL 2% 5ML SYRINGE IV ONE (12:53)
[2021-10-25] MEDS ORDERED: PROPOFOL 200MG/20ML VIAL IV ONE (12:54)
[2021-10-25] MEDS ORDERED: SENNOSIDES/DOCUSATE SOD 8.6/50MG TABLET PO PRN (13:00)
[2021-10-25] MEDS ORDERED: DEXAMETHASONE 4MG/ML 1ML VIAL ONE (13:10)
[2021-10-25] MEDS ORDERED: ONDANSETRON HCL 4MG/2ML INJ ONE (13:10)
[2021-10-25 16:57] LABS: PLATELET ESTIMATE NORMAL
[2021-10-25] MEDS: SUCRALFATE 1 G/10 ML UDC PO SCH ×2 (17:11→21:45)
[2021-10-25] MEDS ORDERED: SENNOSIDES/DOCUSATE SOD 8.6/50MG TABLET PO SCH (18:00)
[2021-10-25] MEDS: ATORVASTATIN CALCIUM 40MG TABLET PO SCH (21:46)
[2021-10-26] VITALS (11 sets, daily range): BP systolic 127–159; BP diastolic 56–71
[2021-10-26] MEDS: IPRATROPIUM BROMIDE (0.02%) 0.5MG/2.5ML NEB HHN SCH ×7 (00:14→23:45)
[2021-10-26] MEDS: MEROPENEM 1,000 MG in SODIUM CHLORIDE 0.9% 100 ML IV SCH ×3 (05:52→21:51)
[2021-10-26] MEDS: LACTULOSE 20G/30ML UDC PO SCH ×3 (05:52→21:50)
[2021-10-26] MEDS: HYDRALAZINE HCL 50MG TABLET PO SCH ×3 (05:53→21:53)
[2021-10-26] MEDS: DILTIAZEM HCL 60MG TABLET PO SCH ×3 (05:54→21:53)
[2021-10-26 07:26] LABS: HEMATOCRIT. 44.8 % (42.0-52.0); HEMOGLOBIN. 14.6 g/dL (14.0-18.0); MEAN CORPUSCULAR HEMOGLOBIN 31.3 pg (28.0-32.0); MEAN CORPUSCULAR VOLUME 95.8 fL (80.0-94.0); MEAN PLATELET VOLUME 10.1 fl (7.4-10.4); PLATELET 259 x1000/uL (130-400); RED BLOOD CELL COUNT 4.68 mill/uL (4.7-6.1); RED CELL DISTRIBUTION WIDTH 14.5 % (11.6-14.6)
[2021-10-26] MEDS: BLOOD SUGAR DIAGNOSTIC STRIP TEST SCH ×4 (07:30→21:51)
[2021-10-26 08:57] LABS: CHLORIDE 98 mEq/L (98-107)
[2021-10-26] MEDS: SUCRALFATE 1 G/10 ML UDC PO SCH ×4 (09:48→21:50)
[2021-10-26] MEDS: PREDNISONE 20MG TABLET PO SCH ×2 (09:48→17:46)
[2021-10-26] MEDS: PANTOPRAZOLE SODIUM 40 MG/VIAL IV SCH ×2 (09:48→21:50)
[2021-10-26] MEDS: ENOXAPARIN 100MG/ML SYR SUBCUT SCH ×2 (09:48→21:51)
[2021-10-26] MEDS: INSULIN LISPRO 100 UNITS/ML SUBCUT SCH ×4 (09:49→21:52)
[2021-10-26] MEDS: SODIUM CHLORIDE 0.9% 1,000 ML IV SCH (09:49)
[2021-10-26 12:05] LABS: BG BASE EXCESS 5.6 mmol/L (-2.0-2.0); BG CARBOXYHEMOGLOBIN 1.1 % (0.5-1.5); BG DEOXYHEMOGLOBIN 9.5 % (0.0-5.0); BG FRACTION INSPIRED OXYGEN 21; BG HCO3 ACT 29.4 mmol/L (22.0-26.0); BG METHEMOGLOBIN 0.4 % (0.0-1.5); BG OXYGEN SATURATION 90.4 % (92.0-98.5); BG PCO2 39.7 mmHg (35.0-45.0); BG PH 7.487 (7.350-7.450); BG PO2 57.3 mmHg (75.0-100.0); BG SAMPLE SITE LEFT RADIAL; BG TOTAL HEMOGLOBIN 16.3 g/dL (12.0-18.0); BG VENT MODE ROOM AIR
[2021-10-26] MEDS ORDERED: BISACODYL 10MG SUPP PR NR (14:30)
[2021-10-26 17:06] LABS: PLATELET ESTIMATE NORMAL
[2021-10-26] MEDS: ATORVASTATIN CALCIUM 40MG TABLET PO SCH (21:52)
[2021-10-27] VITALS (12 sets, daily range): BP systolic 102–140; BP diastolic 56–63
[2021-10-27] MEDS: SODIUM CHLORIDE 0.9% 1,000 ML IV SCH ×2 (03:49→19:51)
[2021-10-27] MEDS: IPRATROPIUM BROMIDE (0.02%) 0.5MG/2.5ML NEB HHN SCH ×4 (04:08→20:24)
[2021-10-27] MEDS: DILTIAZEM HCL 60MG TABLET PO SCH (06:25)
[2021-10-27] MEDS: MEROPENEM 1,000 MG in SODIUM CHLORIDE 0.9% 100 ML IV SCH ×3 (06:25→21:37)
[2021-10-27] MEDS: LACTULOSE 20G/30ML UDC PO SCH ×3 (06:25→21:38)
[2021-10-27] MEDS: HYDRALAZINE HCL 50MG TABLET PO SCH ×3 (06:25→21:39)
[2021-10-27 06:42] LABS: HEMATOCRIT. 43.6 % (42.0-52.0); HEMOGLOBIN. 14.9 g/dL (14.0-18.0); MEAN CORPUSCULAR HEMOGLOBIN 32.4 pg (28.0-32.0); MEAN CORPUSCULAR VOLUME 94.8 fL (80.0-94.0); MEAN PLATELET VOLUME 10.1 fl (7.4-10.4); PLATELET 269 x1000/uL (130-400); RED CELL DISTRIBUTION WIDTH 14.7 % (11.6-14.6)
[2021-10-27 06:52] LABS: CHLORIDE 98 mEq/L (98-107)
[2021-10-27] MEDS: BLOOD SUGAR DIAGNOSTIC STRIP TEST SCH ×4 (08:13→21:37)
[2021-10-27] MEDS: INSULIN LISPRO 100 UNITS/ML SUBCUT SCH ×4 (08:43→21:38)
[2021-10-27] MEDS: SUCRALFATE 1 G/10 ML UDC PO SCH ×4 (08:43→21:38)
[2021-10-27] MEDS: ENOXAPARIN 100MG/ML SYR SUBCUT SCH (08:44)
[2021-10-27] MEDS: PANTOPRAZOLE SODIUM 40 MG/VIAL IV SCH ×2 (08:44→21:39)
[2021-10-27] MEDS: PREDNISONE 20MG TABLET PO SCH ×2 (08:44→18:01)
[2021-10-27] MEDS: DILTIAZEM HCL 180MG CAPSULE CD 24HR PO SCH (13:00)
[2021-10-27] MEDS ORDERED: LIP40 PO (13:33)
[2021-10-27] MEDS ORDERED: HYDR-4135 PO (13:33)
[2021-10-27] MEDS ORDERED: LEVO500T90 MT (13:33)
[2021-10-27] MEDS ORDERED: DILT180C66 PO (13:33)
[2021-10-27] MEDS ORDERED: SUCR1ORA15 PO (13:33)
[2021-10-27] MEDS ORDERED: METF-414 MT (13:35)
[2021-10-27] MEDS ORDERED: APIX5TAB PO (13:35)
[2021-10-27] MEDS ORDERED: NA PHOS,M-B/NA PHOS,DI-BA ENEMA 118ML PR NR (14:00)
[2021-10-27 16:22] LABS: BG DEOXYHEMOGLOBIN 10.3 % (0.0-5.0); BG FRACTION INSPIRED OXYGEN 21; BG HCO3 ACT 26.9 mmol/L (22.0-26.0); BG METHEMOGLOBIN 0.3 % (0.0-1.5); BG OXYGEN SATURATION 89.6 % (92.0-98.5); BG OXYHEMOGLOBIN 88.4 % (94.0-97.0); BG PCO2 35.2 mmHg (35.0-45.0); BG PH 7.501 (7.350-7.450); BG SAMPLE SITE LEFT RADIAL; BG TOTAL HEMOGLOBIN 16.7 g/dL (12.0-18.0); BG VENT MODE ROOM AIR
[2021-10-27 18:23] LABS: PLATELET ESTIMATE NORMAL
[2021-10-27] MEDS: ATORVASTATIN CALCIUM 40MG TABLET PO SCH (21:38)
[2021-10-28] VITALS (12 sets, daily range): BP systolic 114–145; BP diastolic 48–61
[2021-10-28] MEDS: IPRATROPIUM BROMIDE (0.02%) 0.5MG/2.5ML NEB HHN SCH ×6 (01:58→20:36)
[2021-10-28] MEDS: SUCRALFATE 1 G/10 ML UDC PO SCH ×4 (07:30→21:03)
[2021-10-28] MEDS: BLOOD SUGAR DIAGNOSTIC STRIP TEST SCH ×4 (07:45→21:03)
[2021-10-28] MEDS: INSULIN LISPRO 100 UNITS/ML SUBCUT SCH ×4 (08:00→21:05)
[2021-10-28 08:48] LABS: HEMATOCRIT. 42.1 % (42.0-52.0); HEMOGLOBIN. 14.2 g/dL (14.0-18.0); MEAN PLATELET VOLUME 10.4 fl (7.4-10.4); PLATELET 259 x1000/uL (130-400); RED BLOOD CELL COUNT 4.43 mill/uL (4.7-6.1); RED CELL DISTRIBUTION WIDTH 14.7 % (11.6-14.6)
[2021-10-28] MEDS: PANTOPRAZOLE SODIUM 40 MG/VIAL IV SCH ×2 (09:06→18:59)
[2021-10-28] MEDS: DILTIAZEM HCL 180MG CAPSULE CD 24HR PO SCH (09:07)
[2021-10-28] MEDS: PREDNISONE 20MG TABLET PO SCH ×2 (09:07→18:21)
[2021-10-28] MEDS: ENOXAPARIN 100MG/ML SYR SUBCUT SCH ×2 (09:08→21:00)
[2021-10-28 09:37] LABS: CHLORIDE 98 mEq/L (98-107)
[2021-10-28] MEDS: LACTULOSE 20G/30ML UDC PO SCH ×2 (14:00→21:04)
[2021-10-28] MEDS: HYDRALAZINE HCL 50MG TABLET PO SCH ×2 (14:59→21:03)
[2021-10-28] MEDS: MEROPENEM 1,000 MG in SODIUM CHLORIDE 0.9% 100 ML IV SCH ×2 (15:00→21:03)
[2021-10-28 15:17] LABS: PLATELET ESTIMATE NORMAL
[2021-10-28] MEDS: ATORVASTATIN CALCIUM 40MG TABLET PO SCH (21:03)
[2021-10-29] VITALS (15 sets, daily range): BP systolic 118–138; BP diastolic 50–62
[2021-10-29] MEDS: IPRATROPIUM BROMIDE (0.02%) 0.5MG/2.5ML NEB HHN SCH ×6 (00:30→20:55)
[2021-10-29] MEDS: MEROPENEM 1,000 MG in SODIUM CHLORIDE 0.9% 100 ML IV SCH ×3 (05:05→22:08)
[2021-10-29] MEDS: HYDRALAZINE HCL 50MG TABLET PO SCH ×3 (05:05→22:09)
[2021-10-29] MEDS: SODIUM CHLORIDE 0.9% 1,000 ML IV SCH ×2 (05:05→21:51)
[2021-10-29] MEDS: LACTULOSE 20G/30ML UDC PO SCH ×3 (05:06→22:14)
[2021-10-29 07:08] LABS: CHLORIDE 103 mEq/L (98-107)
[2021-10-29 07:29] LABS: HEMATOCRIT. 41.7 % (42.0-52.0); MEAN CORPUSCULAR HEMOGLOBIN 31.9 pg (28.0-32.0); MEAN CORPUSCULAR VOLUME 94.8 fL (80.0-94.0); MEAN PLATELET VOLUME 10.2 fl (7.4-10.4); PLATELET 255 x1000/uL (130-400); RED CELL DISTRIBUTION WIDTH 14.4 % (11.6-14.6)
[2021-10-29] MEDS: BLOOD SUGAR DIAGNOSTIC STRIP TEST SCH ×4 (07:30→21:00)
[2021-10-29] MEDS: PANTOPRAZOLE SODIUM 40 MG/VIAL IV SCH ×2 (09:10→22:09)
[2021-10-29] MEDS: SUCRALFATE 1 G/10 ML UDC PO SCH ×4 (09:10→22:09)
[2021-10-29] MEDS: ENOXAPARIN 100MG/ML SYR SUBCUT SCH (09:11)
[2021-10-29] MEDS: DILTIAZEM HCL 180MG CAPSULE CD 24HR PO SCH (09:12)
[2021-10-29] MEDS: PREDNISONE 20MG TABLET PO SCH ×2 (09:12→17:42)
[2021-10-29] MEDS: INSULIN LISPRO 100 UNITS/ML SUBCUT SCH ×4 (09:13→22:12)
[2021-10-29] MEDS: ATORVASTATIN CALCIUM 40MG TABLET PO SCH (22:09)
[2021-10-29] MEDS: ENOXAPARIN 80MG/0.8ML SYR SUBCUT SCH (22:10)
[2021-10-30] VITALS (12 sets, daily range): BP systolic 128–149; BP diastolic 54–68
[2021-10-30] MEDS: IPRATROPIUM BROMIDE (0.02%) 0.5MG/2.5ML NEB HHN SCH ×6 (00:07→20:07)
[2021-10-30 03:18] LABS: PLATELET ESTIMATE NORMAL
[2021-10-30] MEDS: HYDRALAZINE HCL 50MG TABLET PO SCH ×3 (07:06→21:29)
[2021-10-30] MEDS: BLOOD SUGAR DIAGNOSTIC STRIP TEST SCH ×4 (07:06→21:26)
[2021-10-30] MEDS: MEROPENEM 1,000 MG in SODIUM CHLORIDE 0.9% 100 ML IV SCH ×3 (07:06→21:28)
[2021-10-30] MEDS: SUCRALFATE 1 G/10 ML UDC PO SCH ×5 (07:07→21:26)
[2021-10-30] MEDS: LACTULOSE 20G/30ML UDC PO SCH ×4 (07:11→21:43)
[2021-10-30 07:58] LABS: CHLORIDE 103 mEq/L (98-107)
[2021-10-30] MEDS: INSULIN LISPRO 100 UNITS/ML SUBCUT SCH ×4 (08:00→21:27)
[2021-10-30] MEDS: PANTOPRAZOLE SODIUM 40 MG/VIAL IV SCH ×2 (09:28→21:26)
[2021-10-30] MEDS: PREDNISONE 20MG TABLET PO SCH ×2 (09:29→17:43)
[2021-10-30] MEDS: DILTIAZEM HCL 180MG CAPSULE CD 24HR PO SCH (09:30)
[2021-10-30] MEDS: ENOXAPARIN 80MG/0.8ML SYR SUBCUT SCH ×2 (09:30→21:27)
[2021-10-30] MEDS: SODIUM CHLORIDE 0.9% 1,000 ML IV SCH (14:40)
[2021-10-30 16:09] LABS: HEMATOCRIT. 45.6 % (42.0-52.0); HEMOGLOBIN. 15.2 g/dL (14.0-18.0); MEAN CORPUSCULAR VOLUME 96.2 fL (80.0-94.0); MEAN PLATELET VOLUME 10.6 fl (7.4-10.4); PLATELET 294 x1000/uL (130-400); RED BLOOD CELL COUNT 4.74 mill/uL (4.7-6.1); RED CELL DISTRIBUTION WIDTH 14.6 % (11.6-14.6)
[2021-10-30] MEDS ORDERED: DAPA10TA PO (20:09)
[2021-10-30] MEDS ORDERED: ALD2525 PO (20:10)
[2021-10-30] MEDS ORDERED: SITA1TBM7 PO (20:11)
[2021-10-30] MEDS ORDERED: ERGO1250 PO (20:18)
[2021-10-30] MEDS: ATORVASTATIN CALCIUM 40MG TABLET PO SCH (21:26)
[2021-10-30 22:57] LABS: PLATELET ESTIMATE NORMAL
[2021-10-31] VITALS: BP 144/65
[2021-10-31] MEDS: IPRATROPIUM BROMIDE (0.02%) 0.5MG/2.5ML NEB HHN SCH ×3 (00:21→08:05)
[2021-10-31 04:00] VITALS: BP 126/57
[2021-10-31] MEDS: HYDRALAZINE HCL 50MG TABLET PO SCH (05:33)
[2021-10-31] MEDS: MEROPENEM 1,000 MG in SODIUM CHLORIDE 0.9% 100 ML IV SCH (05:33)
[2021-10-31] MEDS: LACTULOSE 20G/30ML UDC PO SCH (05:35)
[2021-10-31 05:42] VITALS: BP 128/62
[2021-10-31 08:00] VITALS: BP 136/60
== END 2021-10-31 11:35 | disposition home health service (06) | DRG 871 ==
LOC: ER 22:17 → EDBEDREQTM 10-16 02:37 → 5EST 10-16 02:44 → EDBEDREQTM 10-16 02:50 → ENRESERV 10-16 03:30
PROVIDERS: ADMIT Internal Medicine; ATTEND Internal Medicine
PROC: 5A09357 Assistance with Respiratory Ventilation, Less than 24 Consecutive Hours, Continuous Positive Airway Pressure (ICD-10-PCS; 2021-10-16)
PROC: 5A09357 Assistance with Respiratory Ventilation, Less than 24 Consecutive Hours, Continuous Positive Airway Pressure (ICD-10-PCS; 2021-10-17)
PROC: 0DB68ZX Excision of Stomach, Via Natural or Artificial Opening Endoscopic, Diagnostic (ICD-10-PCS; principal; 2021-10-25)
PROC: 0DB58ZX Excision of Esophagus, Via Natural or Artificial Opening Endoscopic, Diagnostic (ICD-10-PCS; 2021-10-25)
DX: A41.59 Other Gram-negative sepsis (principal); I50.23 Acute on chronic systolic (congestive) heart failure; J18.9 Pneumonia, unspecified organism; N17.0 Acute kidney failure with tubular necrosis; J96.21 Acute and chronic respiratory failure with hypoxia; E87.2 Acidosis; J44.1 Chronic obstructive pulmonary disease with (acute) exacerbation; N17.9 Acute kidney failure, unspecified; E44.1 Mild protein-calorie malnutrition; E72.20 Disorder of urea cycle metabolism, unspecified; G93.40 Encephalopathy, unspecified; K92.0 Hematemesis; J44.0 Chronic obstructive pulmonary disease with (acute) lower respiratory infection; I11.0 Hypertensive heart disease with heart failure; K20.90 Esophagitis, unspecified without bleeding; K29.70 Gastritis, unspecified, without bleeding; I48.0 Paroxysmal atrial fibrillation; R65.20 Severe sepsis without septic shock; E11.9 Type 2 diabetes mellitus without complications; E78.00 Pure hypercholesterolemia, unspecified; D72.825 Bandemia; E78.5 Hyperlipidemia, unspecified; B96.1 Klebsiella pneumoniae [K. pneumoniae] as the cause of diseases classified elsewhere; Z20.822 Contact with and (suspected) exposure to COVID-19; Z79.899 Other long term (current) drug therapy; Z68.33 Body mass index [BMI] 33.0-33.9, adult; Z87.891 Personal history of nicotine dependence
CPT/HCPCS: 36415; 36600; 71045; 71275; 73501; 76700; 80048; 80053; 80202; 80305; 81003; 82140; 82375; 82378; 82550; 82553; 82607; 82728; 82746; 82805; 82962; 83036; 83540; 83550; 83605; 83880; 84145; 84484; 85014; 85018; 85025; 85027; 85044; 86301; 87077; 87186; 87426; 88305; 88312; 88313; 92610; 93005; 93306; 93970; 94640; 94644; 94660; 97162; 99291; C1893; C9113; C9803; J0456; J0696; J1100; J1650; J1815; J2185; J2405; J2543; J2704; J2920; J2930; J3370; J3475; J3490; J7030; J7050; J7060; J7512; J7608; Q9967